=== PATIENT | male | born 1980 | race African-American/Black ===

== ENCOUNTER 2017-06-15 01:58 | Emergency (ER) | payer OTHER ==
--- NOTE | 2017-06-15 06:15 | XR ---
EXAM: XR Chest, 2 Views CLINICAL HISTORY: No prior, tachycardia, increased BP, shielded TECHNIQUE: Frontal and lateral views of the chest. COMPARISON: Chest CT from 05/07/2016 FINDINGS: Lungs: Unremarkable. No consolidation. Pleural space: Unremarkable. No pneumothorax. Heart: Unremarkable. No cardiomegaly. Mediastinum: Unremarkable. Bones/joints: Unremarkable. IMPRESSION: No acute findings
== END 2017-06-15 05:00 | disposition home or self-care (01) ==
LOC: EC 01:58
DX: R06.02 Shortness of breath (principal); F19.10 Other psychoactive substance abuse, uncomplicated; I10 Essential (primary) hypertension; F20.9 Schizophrenia, unspecified; F17.200 Nicotine dependence, unspecified, uncomplicated; Z79.899 Other long term (current) drug therapy
CPT/HCPCS: 71046; 93005; 99285

== ENCOUNTER 2018-08-12 04:05 | Emergency (ER) | payer OTHER ==
--- NOTE | 2018-08-12 05:26 | ED ---
Overdose HPI - General Chief Complaint: Overdose Stated Complaint: poisoning Time Seen by Provider: 08/12/18 04:08 Source: patient Mode of arrival: EMS Limitations: no limitations - History of Present Illness Initial Comments: This patient is a 37-year-old man who presents with complaint that he smoked some marijuana laced. Patient states that he feels very anxious and paranoid. Patient denies pain or dyspnea he had smoked approximately 4 AM. Complaint: accidental overdose -: minutes(s) - Related Data Home Medications Medication Instructions Recorded Confirmed No Known Home Medications 08/12/18 08/12/18 Allergies Allergy/AdvReac Type Severity Reaction Status Date / Time No Known Allergies Allergy Verified 08/12/18 04:12 Review of Systems ROS Statement: Those systems with pertinent positive or pertinent negative responses have been documented in the HPI. ROS Other: All systems not noted in ROS Statement are negative. Constitutional: Denies: fever, chills Respiratory: Denies: cough, dyspnea Cardiovascular: Denies: chest pain, palpitations, syncope Gastrointestinal: Denies: abdominal pain, vomiting, diarrhea Genitourinary: Denies: dysuria, hematuria Musculoskeletal: Denies: back pain Skin: Denies: rash Neurological: Denies: headache, weakness, numbness Psychiatric: Reports: anxiety. Denies: depression, homicidal thoughts, suicidal thoughts Past Medical History Past Medical History: No Reported History History of Any Multi-Drug Resistant Organisms: None Reported Past Surgical History: No Surgical Hx Reported Past Psychological History: No Psychological Hx Reported Smoking Status: Current every day smoker Past Alcohol Use History: None Reported Past Drug Use History: Marijuana General Exam Limitations: no limitations General appearance: alert, in no apparent distress, anxious Head exam: Present: atraumatic, normocephalic Eye exam: Present: normal appearance. Absent: scleral icterus, conjunctival injection Respiratory exam: Present: normal lung sounds bilaterally. Absent: respiratory distress, wheezes, rales, rhonchi, stridor Cardiovascular Exam: Present: regular rate, normal rhythm, normal heart sounds. Absent: systolic murmur, diastolic murmur, rubs GI/Abdominal exam: Present: soft. Absent: distended, tenderness, guarding, rebound, rigid Neurological exam: Present: alert, oriented X3 Psychiatric exam: Present: anxious. Absent: agitated, manic, homicidal ideation, suicidal ideation Skin exam: Present: warm, dry, intact, normal color. Absent: rash Course Vital Signs 08/12/18 08/12/18 08/12/18 04:07 04:19 05:14 Temperature 97.9 F 98.2 F Pulse Rate 87 78 82 Respiratory 20 16 17 Rate Blood Pressure 130/91 127/90 139/88 O2 Sat by Pulse 99 98 97 Oximetry Disposition Clinical Impression: Anxiety Disposition: HOME SELF-CARE Condition: Good Instructions (If sedation given, give patient instructions): Anxiety (ED) Is patient prescribed a controlled substance at d/c from ED?: No Referrals: Ancelmo Perea MD [Primary Care Provider] - 1-2 days
[2018-08-12 07:12] VITALS: BP 124/83; PULSE 77; RESP 18; TEMP 97.9
== END 2018-08-12 07:12 | disposition home or self-care (01) ==
LOC: EC 04:05
DX: F41.9 Anxiety disorder, unspecified (principal); T40.7X1A Poisoning by cannabis (derivatives), accidental (unintentional), initial encounter; F17.200 Nicotine dependence, unspecified, uncomplicated
CPT/HCPCS: 93005; 99284

== ENCOUNTER 2018-08-12 07:30 | Emergency (ER) | payer OTHER ==
[2018-08-12 07:46] VITALS: RESP 18; TEMP 98.6
[2018-08-12] MEDS ORDERED: LORazepam 1 MG TAB PO STA (08:20)
[2018-08-12] MEDS ORDERED: IBUPROFEN 600 MG TAB PO STA (08:20)
--- NOTE | 2018-08-12 08:22 | ED ---
General Adult HPI - General Chief complaint: Chest Pain Stated complaint: Chest pressure Time Seen by Provider: 08/12/18 08:05 Source: patient, RN notes reviewed Mode of arrival: ambulatory Limitations: no limitations - History of Present Illness Initial comments: 37-year-old male with past medical history of schizophrenia presents to the emergency department for a chief complaint of anxiety. Patient states he thinks he smoked marijuana that was placed about 5 hours ago. Patient states he is now getting pain just below his left clavicle. He states this is a pressure and it hurts worse when he presses on it. Patient was just discharged from this facility for anxiety from laced marijuana. Guardian is in the room stating patient does appear anxious. Guardian is stating that patient is supposed to be taking psychiatric medicines but stopped taking the 6 months ago. Psychiatrist is aware of this. However he states that for the past several months she has been acting like before he was put on these medications and this is consistent with his usual behavior.Patient has no other complaints at this time including shortness of breath, chest pain, abdominal pain, nausea or vomiting, headache, or visual changes. - Related Data Home Medications Medication Instructions Recorded Confirmed Atenolol/Chlorthalidone 1 tab PO DAILY 08/12/18 08/12/18 [Atenolol-Chlorthalidone 50-25] Benazepril HCl 40 mg PO DAILY 08/12/18 08/12/18 amLODIPine [Norvasc] 10 mg PO DAILY 08/12/18 08/12/18 Allergies Allergy/AdvReac Type Severity Reaction Status Date / Time No Known Allergies Allergy Verified 08/12/18 07:46 Review of Systems ROS Statement: Those systems with pertinent positive or pertinent negative responses have been documented in the HPI. ROS Other: All systems not noted in ROS Statement are negative. Past Medical History Past Medical History: No Reported History History of Any Multi-Drug Resistant Organisms: None Reported Past Surgical History: No Surgical Hx Reported Past Psychological History: No Psychological Hx Reported Smoking Status: Current every day smoker Past Alcohol Use History: None Reported Past Drug Use History: Marijuana General Exam Limitations: no limitations General appearance: alert, in no apparent distress Head exam: Present: atraumatic, normocephalic, normal inspection Eye exam: Present: normal appearance, PERRL, EOMI. Absent: scleral icterus, conjunctival injection, periorbital swelling ENT exam: Present: normal exam, mucous membranes moist Neck exam: Present: normal inspection, full ROM. Absent: tenderness, meningismus, lymphadenopathy Respiratory exam: Present: normal lung sounds bilaterally, chest wall tenderness (Patient has tenderness just inferior to the left clavicle along left anterior ribs 2-3). Absent: respiratory distress, wheezes, rales, rhonchi, stridor Cardiovascular Exam: Present: regular rate, normal rhythm, normal heart sounds. Absent: systolic murmur, diastolic murmur, rubs, gallop, clicks GI/Abdominal exam: Present: soft, normal bowel sounds. Absent: distended, tenderness, guarding, rebound, rigid Neurological exam: Present: alert, oriented X3, CN II-XII intact Psychiatric exam: Present: normal affect, normal mood Course Vital Signs 08/12/18 08/12/18 07:44 07:46 Temperature 98.6 F Pulse Rate 77 Respiratory 18 18 Rate Blood Pressure 118/72 O2 Sat by Pulse 98 Oximetry - Reevaluation(s) Reevaluation #1: 08/12/18 08:28 Discussed smoking cessation for greater than 3 minutes EKG Findings - EKG Comments: EKG Findings:: Normal sinus rhythm, ventricular rate of 75, VA int 162, QTc 453 Medical Decision Making - Medical Decision Making 37-year-old male with a past medical history of schizophrenia presents to the emergency department for a chief complaint of chest wall pain. Patient states this has been going on for 4 hours since he smoked marijuana. Patient is anxious and concerned it was laced with something. Patient was discharged from this facility for anxiety but shortly returned because he did not feel better. Patient states he has a pain and pressure just below his left clavicle. This is reproducible to palpation. Patient denies any radiating pain, denies any substernal pain. Denies any shortness of breath. Patient was seen 2 months ago for very similar complaint after smoking marijuana. In fact, patient's guardian states he has not been taking his psychiatric medications for the past 6 months and his behavior has returned however was before medications were administered. Psychiatrist is aware of this. He denies any suicidal thoughts. EKG unremarkable. Vitals are stable. Chest x-ray negative. Urine drug screen was performed because patient is requesting this to see if his marijuana was laced with anything which was positive only for marijuana. Patient given Ativan and Motrin, feeling much better at this time. Feeling ready for discharge. Guardian at bedside agrees. Patient will follow up with primary care and return if he has any worsening symptoms. - Lab Data Lab Results 08/12/18 Range/Units 08:00 Urine Opiates Screen Not Detected (NotDetected) Ur Oxycodone Screen Not Detected (NotDetected) Urine Methadone Screen Not Detected (NotDetected) Ur Propoxyphene Screen Not Detected (NotDetected) Ur Barbiturates Screen Not Detected (NotDetected) U Tricyclic Antidepress Not Detected (NotDetected) Ur Phencyclidine Scrn Not Detected (NotDetected) Ur Amphetamines Screen Not Detected (NotDetected) U Methamphetamines Scrn Not Detected (NotDetected) U Benzodiazepines Scrn Not Detected (NotDetected) Urine Cocaine Screen Not Detected (NotDetected) U Marijuana (THC) Screen Detected H (NotDetected) Disposition Clinical Impression: Anxiety, Chest wall pain Disposition: HOME SELF-CARE Condition: Good Instructions (If sedation given, give patient instructions): Costochondritis (ED), Anxiety (ED) Additional Instructions: Please follow up with primary care in 1-2 days. Take Motrin for pain. Return if you have any worsening symptoms. Is patient prescribed a controlled substance at d/c from ED?: No Referrals: Ancelmo Perea MD [Primary Care Provider] - 1-2 days Time of Disposition: 10:13
--- NOTE | 2018-08-12 08:30 | XR ---
EXAMINATION TYPE: XR chest 2V DATE OF EXAM: 08/12/2018 HISTORY: Pain. REFERENCE: Previous study dated 06/15/2017. FINDINGS: The lungs are clear. Pleural spaces are clear. The heart is not enlarged. IMPRESSION: NO ACTIVE INTRATHORACIC DISEASE.
[2018-08-12 09:23] LABS: Amphetamine Screen,Urine Not Detected (NotDetected); Barbiturate Screen,Urine Not Detected (NotDetected); Benzodiazepines Screen,Urine Not Detected (NotDetected); Cocaine Screen,Urine Not Detected (NotDetected); Methadone Screen, Urine Not Detected (NotDetected); Opiate Screen,Urine Not Detected (NotDetected); Oxycodone Screen, Urine Not Detected (NotDetected); Phencyclidine Screen,Urine Not Detected (NotDetected); Tricyclic Antidepressant,Urine Not Detected (NotDetected); Urn Cannabinoid Scrn Detected (NotDetected)
[2018-08-12 10:42] VITALS: BP 129/85; PULSE 79
== END 2018-08-12 10:25 | disposition home or self-care (01) ==
LOC: EEVIPCON 07:30 → EC 07:30
DX: F12.980 Cannabis use, unspecified with anxiety disorder (principal); R07.89 Other chest pain; F17.200 Nicotine dependence, unspecified, uncomplicated; Z71.6 Tobacco abuse counseling; Z79.899 Other long term (current) drug therapy
CPT/HCPCS: 71046; 80306; 93005; 99284; 99285; 99406

== ENCOUNTER 2020-01-29 11:50 | Emergency (ER) | payer OTHER ==
[2020-01-29 12:04] VITALS: RESP 18
[2020-01-29] MEDS ORDERED: KETOROLAC 15 MG/ML 1 ML VIAL IM STA (12:28)
[2020-01-29] MEDS ORDERED: ACET/COD 300 MG/30 MG STARTER PACK 6 TAB BTL PO STA (12:28)
[2020-01-29] MEDS ORDERED: LIDOCAINE 5% PATCH TOPICAL SCH (12:30)
--- NOTE | 2020-01-29 12:31 | ED ---
Back Pain HPI - General Chief Complaint: Back Pain/Injury Stated Complaint: back pain Time Seen by Provider: 01/29/20 12:14 Source: patient Limitations: no limitations - History of Present Illness Initial Comments: 39-year-old male presenting to the emergency parents today for chief complaint of low back pain radiating down the left posterior thigh. Sharp in nature. 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 he states that he must have thrown his back out because after yesterdays shift patient was having pain in his low back that radiated down the left posterior thigh. Denies fevers, loss of bowel or bladder control, denies urinary retention or erectile dysfunction. Patient denies IVDU, or history of cancer. Denies falls or direct trauma. Patient denies chest pain or abdominal pain .Denies urinary symptoms. patient has no additional complaints. - Related Data Home Medications Medication Instructions Recorded Confirmed Atenolol/Chlorthalidone 1 tab PO DAILY 08/12/18 08/12/18 [Atenolol-Chlorthalidone 50-25] Benazepril HCl 40 mg PO DAILY 08/12/18 08/12/18 amLODIPine [Norvasc] 10 mg PO DAILY 08/12/18 08/12/18 Previous Rx's Medication Instructions Recorded Cyclobenzaprine [Flexeril] 10 mg PO BID 3 Days #6 tab 01/29/20 Allergies Allergy/AdvReac Type Severity Reaction Status Date / Time No Known Allergies Allergy Verified 01/29/20 12:05 Review of Systems ROS Statement: Those systems with pertinent positive or pertinent negative responses have been documented in the HPI. ROS Other: All systems not noted in ROS Statement are negative. Past Medical History Past Medical History: No Reported History History of Any Multi-Drug Resistant Organisms: None Reported Past Surgical History: No Surgical Hx Reported Past Psychological History: No Psychological Hx Reported Past Alcohol Use History: None Reported Past Drug Use History: Marijuana General Exam - General Exam Comments Initial Comments: General: The patient is awake and alert, in no distress, and does not appear acutely ill. Eye: +3 mm pupils are equal, round and reactive to light, extra-ocular movements are intact. No nystagmus. There is normal conjunctiva bilaterally. No signs of icterus. Ears, nose, mouth and throat: There are moist mucous membranes and no oral lesions. Neck: The neck is supple, there is no tenderness or JVD. Cardiovascular: There is a regular rate and rhythm. No murmur, rub or gallop is appreciated. Respiratory: Lungs are clear to auscultation, respirations are non-labored, breath sounds are equal. No wheezes, stridor, rales, or rhonchi. Gastrointestinal: Soft, non-distended, non-tender abdomen without masses or organomegaly noted. There is no rebound or guarding present. Musculoskeletal: Normal insepction of skin of low back, buttock and thighs b/l. No skin changes. Pain to palpation of paraspinal muscles of lumbar spine as well as deep palpation of mid buttock left sided. Normal ROM, no tenderness of theLE b/l. Strength 5/5 of the LE b/l- VERY strong, no wincing [facility] strength testing. Sensation intact of elizabeth LE b/l including saddle region. Radial and DP pulses equal bilaterally 2+. No myoclonus or fasciculations. Neurological: A&O x 3. CN II-XII intact grossly, There are no obvious motor or sensory deficits. Coordination appears grossly intact. Speech is normal. Skin: Skin is warm and dry and no rashes or lesions are noted. Psychiatric: Cooperative, appropriate mood & affect, normal judgment. Limitations: no limitations Course Vital Signs 01/29/20 01/29/20 01/29/20 12:00 12:18 12:45 Temperature 97.8 F 98.0 F Pulse Rate 82 86 Respiratory 18 18 18 Rate Blood Pressure 151/101 164/97 O2 Sat by Pulse 99 99 Oximetry - Reevaluation(s) Reevaluation #1: 01/29/20 Discussed case with father who is agreeable to care plan and discharge/symptomatic treatment Medical Decision Making - Medical Decision Making 39-year-old male presenting for low back pain. She neurovascular intact. There is no weakness or sensation of the lower extremities he denies any loss of bowel bladder control urinary retention rectal dysfunction sensation deficits or muscles weakness. Patient agreeable to avoiding imaging at this time and trying symptomatic treatment. patient father agreeable to care plan. Return parameters and importance of rest discussed patient verbalized understanding and was discharged appearing well. Disposition Clinical Impression: Acute low back pain, Radiculopathy, Elevated blood pressure reading Disposition: HOME SELF-CARE Condition: Good Instructions (If sedation given, give patient instructions): Acute Low Back Pain (ED) Additional Instructions: Please use medication as discussed. recommend resting x 2 -3 days. apply heat or ice 20 minutes on 20 off three times a day (which ever feels best). Please follow-up with family doctor in the next 2 days. Please return to emergency room if the symptoms increase or worsen or for any other concerns-FEVERS, loss of bowel bladder control unable to urinary erectile dysfunction loss of sensation or weakness of the lower extremities as discussed. Prescriptions: Cyclobenzaprine [Flexeril] 10 mg PO BID 3 Days #6 tab Is patient prescribed a controlled substance at d/c from ED?: No Referrals: Ancelmo Perea MD [Primary Care Provider] - 1-2 days Time of Disposition: 12:31
[2020-01-29 12:49] VITALS: BP 164/97; PULSE 86; TEMP 98
== END 2020-01-29 12:45 | disposition home or self-care (01) ==
LOC: EC 11:50
DX: M54.10 Radiculopathy, site unspecified (principal); M54.5 Low back pain; R03.0 Elevated blood-pressure reading, without diagnosis of hypertension; Z79.899 Other long term (current) drug therapy
CPT/HCPCS: 99283; 96372; J1885

== ENCOUNTER 2021-01-05 06:25 | Emergency (ER) | payer OTHER ==
[2021-01-05 06:38] VITALS: TEMP 97.9
[2021-01-05] MEDS ORDERED: DIPH,PERTUS(ACELL)TETVAC-LF 0.5 ML VIAL IM ONE (06:54)
--- NOTE | 2021-01-05 06:58 | ED ---
Head Injury HPI - General Chief complaint: Head Injury Stated complaint: Fall, head injury Time Seen by Provider: 01/05/21 06:40 Source: patient, RN notes reviewed Mode of arrival: ambulatory Limitations: no limitations - History of Present Illness Initial comments: This is a 40-year-old male presents emergency Department chief complaint of head injury. Patient states that she was outside around 3 AM when he was smoking a cigarette states that he inhaled too far started coughing feeling lightheaded and passed out. Patient states he thinks she may have lost consciousness but states he mars the injury. Patient has abrasion left side of his head and wanes of mild pain no significant headaches neck pain no extremity pain denies chest pain shortness breath nausea vomiting no other complaints currently. He is unsure when his last tetanus was. - Related Data Home Medications Medication Instructions Recorded Confirmed fluPHENAZine decanoate [Prolixin 25 mg IM Q28D 01/05/21 01/05/21 Decanoate] Allergies/Adverse reactions: Allergies Allergy/AdvReac Type Severity Reaction Status Date / Time No Known Allergies Allergy Verified 01/05/21 06:38 Review of Systems ROS Statement: Those systems with pertinent positive or pertinent negative responses have been documented in the HPI. ROS Other: All systems not noted in ROS Statement are negative. Past Medical History Past Medical History: No Reported History History of Any Multi-Drug Resistant Organisms: None Reported Past Surgical History: No Surgical Hx Reported Past Psychological History: No Psychological Hx Reported Smoking Status: Current every day smoker Past Alcohol Use History: None Reported Past Drug Use History: Marijuana General Exam Limitations: no limitations General appearance: alert, in no apparent distress Head exam: Present: atraumatic, normocephalic. Absent: normal inspection (Abrasion left periorbital region) Eye exam: Present: normal appearance, PERRL, EOMI, periorbital swelling, periorbital tenderness. Absent: scleral icterus, conjunctival injection ENT exam: Present: normal exam, normal oropharynx, mucous membranes moist Neck exam: Present: normal inspection, full ROM. Absent: tenderness, meningismus, lymphadenopathy Respiratory exam: Present: normal lung sounds bilaterally. Absent: respiratory distress, wheezes, rales, rhonchi, stridor Cardiovascular Exam: Present: regular rate, normal rhythm, normal heart sounds. Absent: systolic murmur, diastolic murmur, rubs, gallop, clicks Neurological exam: Present: alert, oriented X3, CN II-XII intact, reflexes normal. Absent: motor sensory deficit Skin exam: Present: warm, dry, intact, normal color. Absent: rash Course Vital Signs 01/05/21 06:33 Temperature 97.9 F Pulse Rate 80 Respiratory 26 H Rate Blood Pressure 152/105 O2 Sat by Pulse 99 Oximetry Medical Decision Making - Medical Decision Making CT shows no intracranial process. Patient will be discharged stable condition tetanus is updated. - Lab Data Lab Results 01/05/21 Range/Units 06:58 POC Glucose (mg/dL) 96 (75-99) mg/dL POC Glu [employer] Intern ID Sonja Calero Disposition Clinical Impression: Facial abrasion, Contusion of head, Periorbital contusion of left eye Disposition: HOME SELF-CARE Condition: Stable Instructions (If sedation given, give patient instructions): Head Injury (ED) Additional Instructions: Please return to the Emergency Department if symptoms worsen or any other concerns. Is patient prescribed a controlled substance at d/c from ED?: No Referrals: Dandy Garcia MD [Primary Care Provider] - 1-2 days Time of Disposition: 07:44
[2021-01-05 07:00] LABS: Glucose,Whole Blood 96 mg/dL (75-99)
--- NOTE | 2021-01-05 07:39 | CT ---
EXAMINATION TYPE: CT brain wo con DATE OF EXAM: 01/05/2021 COMPARISON: None HISTORY: 40-year-old male pain after fall, left eye contusion/laceration TECHNIQUE: Examination was done in axial plane without intravenous contrast. Coronal and sagittal r econstructions performed. CT DLP: 1099.4 mGycm Automated exposure control for dose reduction was used. FINDINGS: There is no evidence of acute intracranial hemorrhage, acute ischemic changes, mass, mass-effect, or extra-axial fluid collection. There is no effacement of cerebral sulci or basal subarachnoid cister ns. There is no hydrocephalus. There is no midline shift. Cox-white matter distinction is preserv ed. There is some asymmetric left great septal soft tissue swelling at the left eye. Mastoid air cells well pneumatized. Visualized paranasal sinuses and orbits appear intact. IMPRESSION: No acute intracranial abnormality seen. Left eye preseptal soft tissue swelling.
[2021-01-05 07:47] VITALS: BP 150/90; PULSE 85; RESP 16
== END 2021-01-05 07:47 | disposition home or self-care (01) ==
LOC: EC 06:25
DX: S00.12XA Contusion of left eyelid and periocular area, initial encounter (principal); F17.210 Nicotine dependence, cigarettes, uncomplicated; F12.90 Cannabis use, unspecified, uncomplicated; W17.89XA Other fall from one level to another, initial encounter
CPT/HCPCS: 36415; 70450; 90471; 90715; 93005; 99284

== ENCOUNTER → 2022-05-19 | Outpatient (CLI) | payer OTHER ==
[2022-05-19 17:51] LABS: Basophils # (A) 0.02 X 10*3/uL (0.00-0.10); Basophils % (A) 0.3 %; Eosinophils # (A) 0.07 X 10*3/uL (0.04-0.35); Eosinophils % (A) 1.2 %; HGB 15.7 g/dL (13.0-17.0); Immature Grans, Automated 0.3 %; Lymphocytes # (A) 1.32 X 10*3/uL (0.90-5.00); Lymphocytes % (A) 21.9 %; MCH 30.9 pg (27.0-32.0); MCHC 34.1 g/dL (32.0-37.0); MCV 90.6 fL (80.0-97.0); Mean Platelet Volume 9.3 fL (9.5-12.2); Monocytes # (A) 0.54 X 10*3/uL (0.20-1.00); Monocytes % (A) 8.9 %; NRBC Per 100 WBC 0 /100 WBCS (0.0-0.0); Neutrophils # (A) 4.07 X 10*3/uL (1.80-7.70); Neutrophils % (A) 67.4 %; Platelet Count 261 X 10*3/uL (140-440); RBC 5.08 X 10*6/uL (4.40-5.60); RDW 12.2 % (11.5-14.5); WBC 6.04 X 10*3/uL (4.50-10.00)
[2022-05-19 19:54] LABS: ALT 34 U/L (10-49); AST 24 U/L (14-35); African American GFR (CKD) 96.1 (60.0-200.0); Albumin 4.6 g/dL (3.8-4.9); Alkaline Phosphatase 70 U/L (41-126); BUN/Creat Ratio 11.45 Ratio (12.00-20.00); Blood Urea Nitrogen 12.6 mg/dL (9.0-27.0); Calcium 9.6 mg/dL (8.7-10.3); Carbon Dioxide 27.9 mmol/L (20.0-27.5); Chloride 105 mmol/L (96-109); Chol/HDL Ratio 2.64 Ratio; Globulin 2.3 g/dL (1.6-3.3); Glucose 87 mg/dL (70-110); LDL Cholesterol,Calculated 76.9 mg/dL (0.0-131.0); Non-African American GFR(CKD) 82.9 (60.0-200.0); Potassium 4.3 mmol/L (3.5-5.5); Sodium 142 mmol/L (135-145); Total Protein 6.9 g/dL (6.2-8.2)
== END | disposition home or self-care (01) ==
LOC: LABWHC1 12:46
PROVIDERS: ATTEND Family Medicine
DX: Z00.00 Encounter for general adult medical examination without abnormal findings (principal); Z11.59 Encounter for screening for other viral diseases
CPT/HCPCS: 36415; 80053; 80061; 84439; 84443; 85025; 86803

== ENCOUNTER → 2023-01-18 | Outpatient (CLI) | payer OTHER ==
--- NOTE | 2023-01-18 14:35 | XR ---
EXAMINATION TYPE: XR shoulder complete LT DATE OF EXAM: 01/18/2023 2:28 PM INDICATION: Patient age:Male; 42 years old; Reason for study: M25.519 PAIN IN UNSPECIFIED SHOULDER; COMPARISON: None TECHNIQUE: The left shoulder was examined in AP, internally rotated and scapular Y projections. . FINDINGS: No evidence of acute osseous pathology, joint dislocation, or soft tissue swelling. The remaining por tions of the visualized chest are unremarkable. IMPRESSION: No acute osseous pathology.
== END | disposition home or self-care (01) ==
LOC: RADXRMAIN 14:14
PROVIDERS: ATTEND Family Medicine
DX: M25.512 Pain in left shoulder (principal)

== ENCOUNTER → 2024-03-10 | Outpatient (CLI) | payer OTHER ==
[2024-03-10 23:35] LABS: Basophils # (A) 0.02 X 10*3/uL (0.00-0.10); Basophils % (A) 0.4 %; Eosinophils # (A) 0.07 X 10*3/uL (0.04-0.35); Eosinophils % (A) 1.3 %; HCT 49.2 % (39.6-50.0); HGB 16.3 g/dL (13.0-17.0); Lymphocytes # (A) 1.34 X 10*3/uL (0.90-5.00); Lymphocytes % (A) 24.5 %; MCH 30.9 pg (27.0-32.0); MCHC 33.1 g/dL (32.0-37.0); MCV 93.4 FL (80.0-97.0); Mean Platelet Volume 9.7 FL (9.5-12.2); Monocytes # (A) 0.55 X 10*3/uL (0.20-1.00); NRBC Per 100 WBC 0 X 10*3/uL (0.00-0.01); Neutrophils # (A) 3.49 X 10*3/uL (1.80-7.70); Neutrophils % (A) 63.6 %; Platelet Count 280 X 10*3/uL (140-440); RBC 5.27 X 10*6/uL (4.40-5.60); RDW 12.6 % (11.5-14.5); WBC 5.48 X 10*3/uL (4.50-10.00)
[2024-03-11 09:18] LABS: ALT 26 U/L (10-49); AST 24 U/L (14-35); Albumin 4.6 g/dL (3.8-4.9); Albumin/Globulin Ratio 1.84 Ratio (1.60-3.17); Alkaline Phosphatase 79 U/L (41-126); BUN/Creat Ratio 10.17 Ratio (12.00-20.00); Blood Urea Nitrogen 12.2 mg/dL (9.0-27.0); Calcium 9.7 mg/dL (8.7-10.3); Carbon Dioxide 25.9 mmol/L (21.6-31.8); Chloride 105 mmol/L (96-109); Chol/HDL Ratio 2.42 Ratio; Globulin 2.5 g/dL (1.6-3.3); Glucose 100 mg/dL (70-110); LDL Cholesterol,Calculated 65.4 mg/dL (0.0-131.0); Potassium 4.3 mmol/L (3.5-5.5); Sodium 142 mmol/L (135-145); Total Bilirubin 0.9 mg/dL (0.3-1.2); Total Protein 7.1 g/dL (6.2-8.2); VLDL Calculation 12.62 mg/dL (5.00-40.00)
== END | disposition home or self-care (01) ==
LOC: LABWHC1 10:18
PROVIDERS: ATTEND Nurse Practitioner Family
DX: R03.0 Elevated blood-pressure reading, without diagnosis of hypertension (principal)
CPT/HCPCS: 36415; 80053; 80061; 83036; 84443; 85025

== ENCOUNTER 2024-10-26 08:40 | Emergency (ER) | payer OTHER ==
[2024-10-26 08:57] VITALS: RESP 18
--- NOTE | 2024-10-26 09:26 | ED ---
General Adult HPI - General Chief complaint: Back Pain/Injury Stated complaint: lower back pain Time Seen by Provider: 10/26/24 09:03 Source: patient, RN notes reviewed Mode of arrival: ambulatory Limitations: no limitations - History of Present Illness Initial comments: Patient is a 43-year-old male present to the emergency department with concerns with lower back discomfort. Patient has had some mild discomfort for the past couple of weeks. 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 No radiation. Patient does have history of similar episode around 5 years ago. No incontinence or retention of bowel or bladder. No weakness. No loss of sensation. No trauma to the region directly. - Related Data Home Medications Medication Instructions Recorded Confirmed fluPHENAZine decanoate [Prolixin 25 mg IM Q28D 01/05/21 01/05/21 Decanoate] Previous Rx's Medication Instructions Recorded Cyclobenzaprine [Flexeril] 10 mg PO TID PRN #12 tablet 10/26/24 Ibuprofen [Motrin] 600 mg PO Q6HR PRN #20 tab 10/26/24 Allergies Allergy/AdvReac Type Severity Reaction Status Date / Time No Known Allergies Allergy Verified 10/26/24 08:57 Review of Systems ROS Statement: Those systems with pertinent positive or pertinent negative responses have been documented in the HPI. ROS Other: All systems not noted in ROS Statement are negative. Constitutional: Denies: fever, chills Eyes: Denies: eye pain ENT: Denies: ear pain Respiratory: Denies: dyspnea Cardiovascular: Denies: chest pain Endocrine: Denies: fatigue Gastrointestinal: Denies: abdominal pain Musculoskeletal: Reports: as per HPI, back pain Neurological: Denies: weakness, numbness Past Medical History Past Medical History: No Reported History History of Any Multi-Drug Resistant Organisms: None Reported Past Surgical History: No Surgical Hx Reported Past Psychological History: No Psychological Hx Reported Smoking Status: Current every day smoker Past Alcohol Use History: Occasional Past Drug Use History: Marijuana General Exam Limitations: no limitations General appearance: alert, in no apparent distress Head exam: Present: normocephalic Neck exam: Present: normal inspection Respiratory exam: Present: normal lung sounds bilaterally Cardiovascular Exam: Present: regular rate, normal rhythm Expanded Peripheral pulses: 2+: Posterior Tibialis (R), Posterior Tibialis (L) GI/Abdominal exam: Present: soft. Absent: tenderness, pulsatile mass Extremities exam: Present: normal inspection Back exam: Present: tenderness (Mild tenderness left lateral lumbar region. No spinal tenderness.) Neurological exam: Present: alert. Absent: motor sensory deficit Expanded Sensory exam: Lower Extremity Light Touch: Normal Motor strength exam: RLE: 5, LLE: 5 Psychiatric exam: Present: normal affect, normal mood Skin exam: Present: normal color Course Vital Signs 10/26/24 08:54 Temperature 97.8 F Pulse Rate 98 Respiratory 18 Rate Blood Pressure 135/88 O2 Sat by Pulse 99 Oximetry Medical Decision Making - Medical Decision Making Was pt. sent in by a medical professional or institution (, PA, WIND ENERGY ENGINEER, urgent care, hospital, or residential...) When possible be specific @ -Patient was brought from work Did you speak to anyone other than the patient for history (EMS, parent, family, police, friend...)? What history was obtained from this source @ -No Did you review nursing and triage notes (agree or disagree)? Why? @ -I reviewed and agree with nursing and triage notes Were old charts reviewed (outside hosp., previous admission, EMS record, old EKG, old radiological studies, urgent care reports/EKG's, residential records)? Report findings @ -No old charts were reviewed Differential Diagnosis (chest pain, altered mental status, abdominal pain women, abdominal pain men, vaginal bleeding, weakness, fever, dyspnea, syncope, headache, dizziness, GI bleed, back pain, seizure, CVA, palpatations, mental health, musculoskeletal)? @ -Differential Back Pain: Strain, zoster, cauda equina syndrome, epidural abscess, vertebral osteomyelitis, discitis, fracture, subluxation, disc herniation, DJD, spinal stenosis, dissection, AAA, pancreatitis, peptic ulcer disease, pyelonephritis, kidney stone, this is not meant to be an all-inclusive list. EKG interpreted by me (3pts min.). @ -As above X-rays interpreted by me (1pt min.). @ -None done CT interpreted by me (1pt min.). @ -None done U/S interpreted by me (1pt. min.). @ -None done What testing was considered but not performed or refused? (CT, X-rays, U/S, labs)? Why? @ -Considered imaging however patient has no red flags. No spinal tenderness. What meds were considered but not given or refused? Why? @ -None Did you discuss the management of the patient with other professionals (professionals i.e. , PA, WIND ENERGY ENGINEER, lab, RT, psych nurse, director social welfare, drill press operator helper, teacher, combat information center officer, case management assistant)? Give summary @ -No Was smoking cessation discussed for >3mins.? @ -No Was critical care preformed (if so, how long)? @ -No Were there social determinants of health that impacted care today? How? (Homelessness, low income, unemployed, alcoholism, drug addiction, transportation, low edu. Level, literacy, decrease access to med. care, custodial, rehab)? @ -No Was there de-escalation of care discussed even if they declined (Discuss DNR or withdrawal of care, Hospice)? DNR status @ -No What co-morbidities impacted this encounter? (DM, HTN, Smoking, COPD, CAD, Cancer, CVA, ARF, Chemo, Hep., AIDS, mental health diagnosis, sleep apnea, morbid obesity)? @ -History of similar episode once 5 years ago Was patient admitted / discharged? Hospital course, mention meds given and route, prescriptions, significant lab abnormalities, going to OR and other pertinent info. @ -Patient presents with left lower back discomfort, worse with lifting. No red flags. No weakness or loss of sensation. No incontinence or retention. Patient will be discharged with NSAIDs and muscle relaxers, patient advised to avoid muscle relaxers at work Undiagnosed new problem with uncertain prognosis? @ -No Drug Therapy requiring intensive monitoring for toxicity (Heparin, Nitro, Insulin, Cardizem)? @ -No Were any procedures done? @ -No Diagnosis/symptom? @ -Low back pain Acute, or Chronic, or Acute on Chronic? @ -Acute Uncomplicated (without systemic symptoms) or Complicated (systemic symptoms)? @ -Default Side effects of treatment? @ -No Exacerbation, Progression, or Severe Exacerbation? @ -No Poses a threat to life or bodily function? How? (Chest pain, [place], [place], pneumonia, PE, COPD, DKA, ARF, appy, cholecystitis, CVA, Diverticulitis, Homicidal, Suicidal, threat to staff... and all critical care pts) @ -No Disposition Clinical Impression: Low back pain Disposition: HOME SELF-CARE Condition: Stable Instructions (If sedation given, give patient instructions): Acute Low Back Pain (ED) Additional Instructions: Prescription sent to pharmacy. Do not take muscle relaxers while driving or at work. Please do follow-up with primary care physician in the next couple of days for recheck. Return for increased pain, weakness, loss of control of bowel or bladder, loss of sensation, fever, worsening symptoms or other concerns. Prescriptions: Cyclobenzaprine [Flexeril] 10 mg PO TID PRN #12 tablet PRN Reason: Pain Ibuprofen [Motrin] 600 mg PO Q6HR PRN #20 tab PRN Reason: Pain Is patient prescribed a controlled substance at d/c from ED?: No Referrals: Dandy Garcia MD [Primary Care Provider] - 1-2 days Time of Disposition: 09:25
[2024-10-26] MEDS: KETOROLAC 15 MG/ML 1 ML VIAL IM STA (09:30)
[2024-10-26 09:36] VITALS: BP 130/82; PULSE 94; TEMP 97.9
== END 2024-10-26 09:34 | disposition home or self-care (01) ==
LOC: EC 08:40 → EEVIPCON 08:40 → EC 09:34
DX: M54.50 Low back pain, unspecified (principal); F17.200 Nicotine dependence, unspecified, uncomplicated
CPT/HCPCS: 99283; 96372; J1885

== ENCOUNTER → 2024-10-31 | Outpatient (CLI) | payer OTHER ==
--- NOTE | 2024-10-31 14:53 | XR ---
EXAMINATION TYPE: XR lumbar spine 2 or 3V DATE OF EXAM: 10/31/2024 2:44 PM COMPARISON: None CLINICAL INDICATION: Male, 43 years old with history of M54.50; PHH, pain TECHNIQUE: XR lumbar spine 2 or 3V - Frontal, lateral and coned in L5-S1 lateral views of the spine. FINDINGS: No evidence of any acute osseous pathology. No evidence of loss of vertebral body height i s seen. There is normal alignment of the lumbar vertebral bodies. Scattered disc space narrowing. Mul tilevel marginal osteophyte formation throughout the visualized spine. There is facet joint arthropat hy throughout the spine. Scattered at least mild neural foraminal stenosis. IMPRESSION: 1. No acute fracture. 2. Mild multilevel disc degeneration. [facility], , 10/31/2024 2:50 PM
== END | disposition home or self-care (01) ==
LOC: RADXRMAIN 14:34
PROVIDERS: ATTEND Family Medicine
DX: M51.360 Other intervertebral disc degeneration, lumbar region with discogenic back pain only (principal)
CPT/HCPCS: 72100